=== PATIENT | female | born 1965 | race Caucasian/White ===

== ENCOUNTER 2016-08-03 12:06 | Emergency (ER) | payer OTHER ==
[~2016-08-03] VITALS: Ht 167.6 cm; Wt 86.2 kg
[2016-08-03 12:39] LABS: ABSOLUTE BASOPHIL COUNT 0 /CUMM (0.0-0.2); ABSOLUTE EOSINOPHIL COUNT 0.2 /CUMM (0.0-0.7); ABSOLUTE GRANULOCYTE CT 3.8 /CUMM (1.4-6.5); ABSOLUTE LYMPH COUNT 1.3 /CUMM (1.2-3.4); ABSOLUTE MONOCYTE COUNT 0.5 /CUMM (0.10-0.60); BASOPHIL % 0.3 % (0.0-2.0); EOSINOPHIL % 2.6 % (0-5); GRANULOCYTE % 66.4 % (42.2-75.2); HEMATOCRIT 41.2 % (37-47); MEAN CORPUSCULAR HGB 29.3 PG (27.0-31.0); MEAN PLATELET VOLUME 7.8 FL (7.4-10.4); PLATELET COUNT 294 /CUMM (130-400); RED BLOOD CELL CT 4.63 /CUMM (4.20-5.40); WHITE BLOOD CELL COUNT 5.8 /CUMM (4.8-10.8)
--- NOTE | 2016-08-03 12:56 | ED CARDIAC/CP/PALPITATIONS ---
History of Present Illness General Chief Complaint: Chest Pain Stated Complaint: BIBA FOR CP Source: patient, family Exam Limitations: no limitations Vital Signs & Intake/Output Vital Signs & Intake/Output Vital Signs Date Time Temp Pulse Resp B/P B/P Pulse O2 O2 Flow FiO2 Mean Ox Delivery Rate 08/03 1428 97.5 66 20 125/79 97 Room Air 08/03 1214 96.7 63 16 155/87 98 Room Air Allergies Coded Allergies: azithromycin (N/V/D GI UPSET 08/03/16) clarithromycin (From BIAXIN) (HEARTBURN, STOMACH PAIN 08/03/16) Reconcile Medications Carvedilol 12.5 MG TABLET 2 TAB PO QAM BP (Reported) Carvedilol 12.5 MG TABLET 1 TAB PO QPM BP (Reported) Cholecalciferol (Vitamin D3) (Vitamin D3) (Unknown Strength) CAPSULE (Unknown Dose) PO DAILY SUPPLEMENT (Reported) Cyanocobalamin (Vitamin B-12) (Unknown Strength) TABLET (Unknown Dose) PO DAILY SUPPLEMENT (Reported) Hydrochlorothiazide 12.5 MG TABLET 1 TAB PO QAM BP (Reported) Lactobacillus Acidophilus (Acidophilus) 1 EACH CAPSULE 1 CAP PO DAILY PROBIOTIC (Reported) Losartan Potassium 25 MG TABLET 1 TAB PO QPM BP (Reported) Columbia-3 Fatty Acids (Columbia-3) (Unknown Strength) CAPSULE (Unknown Dose) PO DAILY SUPPLEMENT (Reported) Pravastatin Sodium 10 MG TABLET 0.5 TAB PO QAM CHOLESTEROL (Reported) Triage Note: 50 YO FEMALE BIBBipin FROM URGENT CARE. PER EMS PT WAS OUT FISHING WHEN SHE HAD A SUDDEN ONSET OF MID STRENAL NON RADIATING CHEST PAIN, STATES THE PT WENT TO THE URGENT CARE CENTER AND THEY GAVE HER 324MG ASPIRIN. ON EMS ARRIVAL PT C/O NAUSEA AND "TINGLING" IN L ARM. ON ARRIVAL TO ER, PT STATES SHE IS STILL SLIGHTLY NAUSEOUS, DENIES CHEST PAIN AT THIS TIME. STATES THE PAIN STARTED AFTER SHE HIKED UP A HILL. NSR ON MONITOR, SKIN WARM/DRY. EKG IN PROGRESS Triage Nurses Notes Reviewed? yes HPI: Patient presents for evaluation of an episode of chest pain that occurred at about 9:30 this morning. Patient states [place] and while sitting in the car and felt dizzy and nauseous with a substernal chest heaviness and left upper extremity paresthesias. The patient states that currently she is experiencing just a slight tingling of the left arm but the other symptoms have resolved. Although she denies associated diaphoresis she states that her hands may have gotten a little sweaty. She was evaluated at walk-in clinic prior to emergency department arrival and was treated with an aspirin. An EKG was performed at that time. She denies any prior episodes of this type of pain/symptoms but was evaluated by a senior product development manager in the past secondary to a "irregular" heartbeat. Past History Travel History Traveled to [place] past 21 day No Medical History Any Pertinent Medical History? 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 No Review of Systems Review of Systems Constitutional: Reports: no symptoms. EENTM: Reports: no symptoms. Respiratory: Reports: no symptoms. Cardiovascular: Reports: see HPI. GI: Reports: see HPI. Genitourinary: Reports: no symptoms. Musculoskeletal: Reports: no symptoms. Skin: Reports: no symptoms. Neurological/Psychological: Reports: no symptoms. Hematologic/Endocrine: Reports: no symptoms. Immunologic/Allergic: Reports: no symptoms. All Other Systems: Reviewed and Negative Physical Exam Physical Exam Cardiovascular: see below Comments: Gen.: Well-nourished, well-developed, no acute respiratory distress. Head: Normocephalic, atraumatic. Eyes: Normal inspection bilaterally Ears: Normal inspection bilaterally Nose: Normal inspection Throat/mouth : Moist mucosa Neck: Supple, full range of motion, no goiter, no JVD Heart: Regular rate and rhythm, no murmurs rubs or gallops Lungs: Clear to auscultation bilaterally with normal air entry Chest: Nontender Back: Normal range of motion Abdomen: Soft, nontender, nondistended, normal bowel sounds Extremities: Normal range of motion grossly, equal radial pulses, no cyanosis clubbing or edema, calves nontender Neurologic: Cranial nerves grossly intact, speech is clear Skin: warm and dry Psychiatric: Calm, cooperative, no apparent delusions or hallucinations Core Measures ACS in differential dx? No Severe Sepsis Present: No Septic Shock Present: No Progress Differential Diagnosis: AMI, unstable angina Plan of Care: Orders Procedure Date/time Status Heart Healthy Diet 08/03 D Active TROPONIN LEVEL 08/03 1627 Complete EKG 08/03 1627 Active TROPONIN LEVEL 08/03 1216 Complete COMPREHENSIVE METABOLIC PANEL 08/03 1216 Complete CBC WITHOUT DIFFERENTIAL 08/03 1216 Complete EKG 08/03 1208 Active Laboratory Tests 08/03/16 1653: Troponin I < 0.01 08/03/16 1222: Anion Gap 10, Estimated GFR > 60, BUN/Creatinine Ratio 20.0, Glucose 97, Calcium 9.6, Total Bilirubin 0.7, AST 23, ALT 38, Alkaline Phosphatase 81, Troponin I < 0.01, Total Protein 7.1, Albumin 4.3, Globulin 2.8, Albumin/Globulin Ratio 1.5, CBC w Diff NO MAN DIFF REQ, RBC 4.63, MCV 89.0, MCH 29.3, RDW 14.0, MPV 7.8, Gran % 66.4, Lymphocytes % 22.9, Monocytes % 7.8, Eosinophils % 2.6, Basophils % 0.3, Absolute Granulocytes 3.8, Absolute Lymphocytes 1.3, Absolute Monocytes 0.5 , Absolute Eosinophils 0.2, Absolute Basophils 0, PUBS MCHC 33.0 Diagnostic Imaging: Discussed w/RAD: Radiology Read. CXR Impression: PATIENT: JEN ZULUAGA PRESENT AGE: 50 PATIENT ACCOUNT NO: [id number] : 63 LOCATION: [facility] ORDERING PHYSICIAN: PRADIP SANTIAGO MD SERVICE DATE: 08/03/16 EXAM TYPE: RAD - XRY-PORTABLE CHEST XRAY EXAMINATION: XR PORTABLE CHEST CLINICAL INFORMATION: Chest pain and dizziness COMPARISON: None TECHNIQUE: Portable AP view of the chest was obtained. FINDINGS: No significant abnormality is noted involving the heart, lungs, mediastinum, bony thorax or soft tissues. IMPRESSION: No acute parenchymal disease. DICTATED BY: VALERIO MATA MD DATE/TIME DICTATED:08/03/161348 PICTURES EDITOR:MARQUEZ DATE/TIME TRANSCRIBED:08/03/161348 CONFIDENTIAL, DO NOT COPY WITHOUT APPROPRIATE AUTHORIZATION. <Electronically signed in Other Vendor System> SIGNED BY: VALERIO MATA MD 08/03/16 1401 Initial ED EKG: NSR, rate (64) Prior EKG: unchanged (from walk in) Comments: 08/03/2016 3:57:23 PM Jose is symptom free. I have discussed her case with Dr. Shankar Aguilar, who feels a repeat EKG and troponin would be adequate. Patient can follow-up in their office for additional testing. I considered the following: Pericarditis but the patient had no pericardial friction rub, no preceding viral illnesses and no EKG changes consistent with this. Acute coronary syndrome but the patient's EKG's showed no acute changes, the troponin levels were normal and the patient had a paucity of risk factors. Pneumothorax but the chest x-ray did not show this. Pneumonia but the chest x-ray did not show infiltrate. Pulmonary embolus but the patient had no resting tachycardia, was not hypoxic, had a paucity of risk factors and was low risk per wells criterion. Aortic aneurysm but the description of the patient's pain was inconsistent with this. The chest x-ray showed no widened mediastinum or other changes consistent with this. In addition the patient had a paucity of risk factors. Departure Departure Disposition: HOME OR SELF CARE Condition: Stable Clinical Impression Primary Impression: Chest pain Qualifiers: Chest pain type: unspecified Qualified Code: R07.9 - Chest pain, unspecified Referrals: STEPHENIE GAY MD (PCP/Family) Additional Instructions: Rest, no exertion hiking or sports. Contact Dr. Mead on Thursday and arrange for follow-up appointment within the next 24-48 hours. Notify your primary care doctor of this emergency department visit and treatment plan. Return if any concerns or sudden worsening. Thank you for choosing the [facility] Emergency Department for your care. It was a pleasure to serve you today. Pradip Santiago M.D. [facility] Departure Forms: Customer Survey General Discharge Information Critical Care Note Critical Care Note Critical Care Time: non-applicable
--- NOTE | 2016-08-03 14:01 | RADIOLOGY REPORT ---
EXAMINATION: XR PORTABLE CHEST CLINICAL INFORMATION: Chest pain and dizziness COMPARISON: None TECHNIQUE: Portable AP view of the chest was obtained. FINDINGS: No significant abnormality is noted involving the heart, lungs, mediastinum, bony thorax or soft tissues. IMPRESSION: No acute parenchymal disease.
[2016-08-03] MEDS ORDERED: HYDROCHLOROTH12.5 M2 PO (17:52)
[2016-08-03] MEDS ORDERED: CARVEDILOL12.5 M1 PO ×2 (17:52)
[2016-08-03] MEDS ORDERED: PRAVASTATIN SOD10 M2 PO (17:53)
[2016-08-03] MEDS ORDERED: LOSARTAN POTASS25 M1 PO (17:53)
[2016-08-03] MEDS ORDERED: OMEGA-31000 M1 PO (17:53)
[2016-08-03] MEDS ORDERED: ACIDOPHILUS1 EACH PO (17:54)
[2016-08-03] MEDS ORDERED: VITAMIN B-121000 MC3 PO (17:54)
[2016-08-03] MEDS ORDERED: VITAMIN D31000 UNI1 PO (17:54)
[2016-08-03 18:01] VITALS: BP 110/63
== END 2016-08-03 18:26 ==
LOC: ERH 12:06
PROVIDERS: Emergency Medicine
DX: R07.9 Chest pain, unspecified (principal); R42 Dizziness and giddiness; R11.0 Nausea
CPT/HCPCS: 93005; 93010